=== PATIENT | male | born 1995 | race Caucasian/White ===

== ENCOUNTER 2021-06-27 11:20 | Emergency (ER) | payer SELFPAY ==
[~2021-06-27 11:20] MED LIST: BACTROBAN OINT22 GM EXT; CLEOCIN HCL300 MG PO; IBUPROFEN600 MG PO
[2021-06-27] MEDS ORDERED: AMOXICILLIN875 MG PO (11:35)
== END 2021-06-27 12:25 | disposition home or self-care (01) ==
LOC: ER1 11:20
DX: K04.7 Periapical abscess without sinus (principal); F17.200 Nicotine dependence, unspecified, uncomplicated
CPT/HCPCS: 96372; 99282; J1885

== ENCOUNTER 2021-07-27 16:36 | Emergency (ER) | payer MEDICAID ==
[~2021-07-27 16:36] MED LIST changes: +AMOXICILLIN875 MG PO
[2021-07-27] MEDS ORDERED: BACTRIM DS TAB1 EACH PO (17:16)
[2021-07-27] MEDS ORDERED: CEPHALEXIN500 MG PO (17:16)
== END 2021-07-27 18:05 | disposition home or self-care (01) ==
LOC: ER1 16:36
DX: L03.116 Cellulitis of left lower limb (principal); F17.200 Nicotine dependence, unspecified, uncomplicated
CPT/HCPCS: 99283